=== PATIENT | female | born 1985 | race Caucasian/White ===

== ENCOUNTER 2020-03-19 06:32 | Observation (INO) | payer MEDICAID ==
[~2020-03-19] VITALS: Ht 152.4 cm; Wt 81.6 kg
[2020-03-19] MEDS ORDERED: PNV1TABL76 PO (07:11)
[2020-03-19] MEDS ORDERED: LACTATED RINGERS 1,000 ML IV SCH (07:30)
== END 2020-03-19 11:30 | disposition home or self-care (01) ==
LOC: OBSVTOIN 06:32 → L&D 06:32 → INTOOBSV 06:32 → 8 EST LDRP 07:18
PROVIDERS: ADMIT Obstetrics & Gynecology; ATTEND Obstetrics & Gynecology
DX: O62.9 Abnormality of forces of labor, unspecified (principal); O26.853 Spotting complicating pregnancy, third trimester; O26.893 Other specified pregnancy related conditions, third trimester; R10.9 Unspecified abdominal pain; Z3A.37 37 weeks gestation of pregnancy
CPT/HCPCS: 59025; 76805; 76818; 96360; 96361; G0378; 99281

== ENCOUNTER 2020-03-20 05:37 | Inpatient (IN) | payer MEDICAID ==
[~2020-03-20] VITALS: Ht 152.4 cm; Wt 81.6 kg
[~2020-03-20 05:37] MED LIST: PNV1TABL76 PO
[2020-03-20] MEDS ORDERED: BUTORPHANOL TARTRATE 2 MG/ML VIAL IV PRN (06:15)
[2020-03-20] MEDS ORDERED: MISOPROSTOL 100MCG TABLET VG SCH (06:15)
[2020-03-20] MEDS ORDERED: LACTATED RINGERS 1,000 ML IV SCH (06:15)
[2020-03-20] MEDS ORDERED: DEXT 5%/LR + PITOCIN 20UNITS/L 1,000 ML IV SCH ×2 (06:15→08:30)
[2020-03-20] MEDS ORDERED: PENICILLIN G POTASSIUM 5 MMU in DEXT 5% WATER 100 ML IV NR (06:30)
[2020-03-20 06:44] LABS: CLARITY URINE CLEAR (CLEAR); COLOR URINE YELLOW (YELLOW); KETONES URINE NEGATIVE (NEGATIVE); LEUKOCYTE ESTERASE URINE NEGATIVE (NEGATIVE); NITRITE URINE NEGATIVE (NEGATIVE); OCCULT BLOOD URINE 2+ (NEGATIVE); PROTEIN URINE NEGATIVE (NEGATIVE); SPECIFIC GRAVITY URINE 1.018 (1.005-1.030); UROBILINOGEN URINE 0.2 E.U./dL (0.2-1.0)
[2020-03-20 06:45] LABS: BASOPHILS % 0.3 % (0.0-2.0); EOSINOPHILS % 0.3 % (0.0-5.0); HEMATOCRIT. 40.7 % (36.0-48.0); HEMOGLOBIN. 13.9 g/dL (12.0-16.0); LYMPHOCYTES % 29.3 % (20.0-50.0); MEAN CORPUSCULAR HEMOGLOBIN 33.5 pg (28.0-32.0); MEAN PLATELET VOLUME 7.1 fl (7.4-10.4); MONOCYTES % 7.1 % (2.0-8.0); PLATELET 159 x1000/uL (130-400); RED BLOOD CELL COUNT 4.16 mill/uL (4.2-5.4); RED CELL DISTRIBUTION WIDTH 14.2 % (11.6-14.6)
[2020-03-20 06:55] LABS: *BARBITURATES SCREEN URINE NEGATIVE (NEGATIVE)
[2020-03-20 06:56] LABS: *AMPHETAMINES SCREEN URINE NEGATIVE (NEGATIVE); *BENZODIAZEPINES SCREEN URINE NEGATIVE (NEGATIVE); *COCAINE SCREEN URINE NEGATIVE (NEGATIVE); METHADONE URINE SCREEN NEGATIVE (NEGATIVE); OPIATES URINE SCREEN NEGATIVE (NEGATIVE); PHENCYCLIDINE URINE SCREEN NEGATIVE (NEGATIVE)
[2020-03-20 06:57] LABS: INR 0.9; PARTIAL THROMBOPLASTIN TIME 29.3 sec (23.4-31.0); PROTHROMBIN TIME 9.3 sec (9.6-11.0)
[2020-03-20 06:57] LABS: CANNABINOID URINE SCREEN NEGATIVE (NEGATIVE)
[2020-03-20 07:26] LABS: HEPATITIS B SURFACE ANTIGEN NEGATIVE
[2020-03-20] MEDS ORDERED: IBUPROFEN 800MG TABLET PO PRN ×2 (08:00→08:30)
[2020-03-20] MEDS ORDERED: RHO(D) IMMUNE GLOBULIN 300 MCG/SYR IM PRN (08:30)
[2020-03-20] MEDS ORDERED: IBUPROFEN 400MG TABLET PO PRN (08:30)
[2020-03-20] MEDS ORDERED: LANOLIN OINT 7GM TUBE TOP PRN (08:30)
[2020-03-20] MEDS ORDERED: METHYLERGONOVINE MALEATE 0.2 MG/ML IM NR (08:45)
[2020-03-20] MEDS ORDERED: PRENATAL VIT/FE FUMARATE/FA TABLET PO SCH (09:00)
[2020-03-20] MEDS ORDERED: PENICILLIN G POTASSIUM 2.5 MMU in DEXTROSE 5% WATER 50 ML IV SCH (10:00)
[2020-03-20 13:00] VITALS: BP 106/64
[2020-03-20 16:00] VITALS: BP 112/72
[2020-03-20 20:25] VITALS: BP 107/68
[2020-03-21 04:30] VITALS: BP 90/65
[2020-03-21 08:00] VITALS: BP 100/68
[2020-03-21 08:22] LABS: BASOPHILS % 0.7 % (0.0-2.0); EOSINOPHILS % 1.4 % (0.0-5.0); HEMOGLOBIN. 11.8 g/dL (12.0-16.0); LYMPHOCYTES % 26.1 % (20.0-50.0); MEAN CORPUSCULAR VOLUME 98.1 fL (81.0-99.0); MEAN PLATELET VOLUME 7.1 fl (7.4-10.4); MONOCYTES % 6.1 % (2.0-8.0); NEUTROPHILS % 65.7 % (40.0-76.0); PLATELET 125 x1000/uL (130-400); RED BLOOD CELL COUNT 3.47 mill/uL (4.2-5.4)
== END 2020-03-21 11:00 | disposition home or self-care (01) | DRG 560 ==
LOC: OBSVTOIN 05:37 → 8 EST LDRP 05:37 → 8EST 12:27
PROVIDERS: ADMIT Obstetrics & Gynecology; ATTEND Obstetrics & Gynecology
PROC: 10E0XZZ Delivery of Products of Conception, External Approach (ICD-10-PCS; principal; 2020-03-20)
DX: O69.81X0 Labor and delivery complicated by cord around neck, without compression, not applicable or unspecified (principal); O70.0 First degree perineal laceration during delivery; Z3A.37 37 weeks gestation of pregnancy; Z37.0 Single live birth
CPT/HCPCS: 36415; 80305; 81003; 85025; 86592; 86703; 86762; 86850; 86900; 87340; 99281; J2540; J2590; J7060